=== PATIENT | male | born 1955 | race Caucasian/White ===

== ENCOUNTER 2017-11-27 09:14 | Day surgery (SDC) | payer MEDICARE ==
[2017-11-27] MEDS ORDERED: Sodium Chloride 0.9% 1,000 ML IV ONE ×2 (09:41)
[2017-11-27 09:44] VITALS: BMI 20.9
[2017-11-27] MEDS ORDERED: Propofol 10 mg/ml Inj (20 ML) ONE (10:37)
[2017-11-27 11:14] VITALS: TEMP 96.7
[2017-11-27 11:22] VITALS: BP 123/65; PULSE 88; RESP 17; O2SAT 100
== END 2017-11-27 13:36 | disposition home or self-care (01) ==
LOC: H.ENDO 09:14
PROVIDERS: ATTEND Internal Medicine Gastroenterology
DX: K52.9 Noninfective gastroenteritis and colitis, unspecified (principal); I10 Essential (primary) hypertension; K64.0 First degree hemorrhoids
CPT/HCPCS: 45380; 88305; J2001; J2704; J7030